=== PATIENT | male | born 1960 | race Caucasian/White ===

== ENCOUNTER 2016-08-03 13:53 | Emergency (ER) | payer MEDICARE, OTHER ==
[~2016-08-03 13:53] MED LIST: ASPIRIN325 MG PO; BACTRIM DS TAB1 EACH PO; ETODOLAC400 MG PO; GLIPIZIDE10 MG PO; LISINOPRIL20 MG PO; METFORMIN HCL500 MG PO; OMEPRAZOLE20 M1 PO; PRAVASTATIN SOD40 MG PO; TYLENOL325 M1 PO; VITAMIN B-12500 MCG PO; VITAMIN D31000 UNI1 PO
== END 2016-08-03 16:21 | disposition home or self-care (01) ==
LOC: ER 13:53
DX: R10.9 Unspecified abdominal pain (principal); Z79.899 Other long term (current) drug therapy
CPT/HCPCS: 99283